=== PATIENT | male | born 1970 | race Hispanic/Latino ===

== ENCOUNTER 2021-04-19 06:25 | Day surgery (SDC) | payer BC, OTHER ==
[2021-04-13 14:52] LABS: Absolute Lymphocytes (CBC) 2.4 K/uL (0.7-4.9); Lymphocytes % 31.8 % (15.3-44.8); MPV 9.6 fL (7.6-11.3); RBC Red Blood Cell Count 5.16 M/uL (4.33-5.43)
--- NOTE | 2021-04-13 14:56 | RAD REPORT ---
EXAM DESCRIPTION: Nic Davidson (2 Views)04/13/2021 2:41 pm CLINICAL HISTORY: Preop for toe amputation. Hypertension COMPARISON: 2016 FINDINGS: The lungs appear clear of acute infiltrate. The heart is normal size. PICC line with its tip in proximal superior vena cava IMPRESSION: No acute abnormalities displayed
[2021-04-13 15:05] LABS: BUN Blood Urea Nitrogen 21 mg/dL (7-18); Bicarbonate 27 mmol/L (21-32); Glucose Level 107 mg/dL (74-106); Potassium 4.3 mmol/L (3.5-5.1); Sodium Level 142 mmol/L (136-145)
--- NOTE | 2021-04-18 12:10 | EKG ---
Test Date: 2021-04-13 Test Time: 13:22:09 [place]: WILMAR MEASUREMENT RESULTS: Intervals: Rate: 62 WY: 210 QRSD: 90 QT: 424 QTc: 430 [place]: P: 30 WY: 210 QRS: 75 T: 7 INTERPRETIVE STATEMENTS: Sinus rhythm with 1st degree AV block Possible Inferior infarct, age undetermined Abnormal ECG No previous ECG available for comparison Electronically Signed On 04-18-21 11:55:40 CDT by Pradeep Maldonado
--- NOTE | 2021-04-18 18:53 | PREOPHP ---
Date of Admission: 04/19/2021 History Of Present Illness: This patient presented to my office initially with chief complaint of an ingrown toenail on the right big toe, which was treated with an ingrown toenail procedure, chemical matrixectomy. The patient, however, has had the problem on and off for a year with pus and blood darinel f-treating. Approximately 2 weeks after the procedure had healed and was fine, the patient returned with a swollen right big toe that was painful. X-ray evaluation revealed bone changes consistent wit h osteomyelitis and the patient was sent for IV antibiosis [facility] over the past 2 months. The patient has undergone treatment with an IV cephalosporin, but the pat ient has had continued discomfort in the toe with episodes of swelling and irritation. Upon discussi on with Dr. Contreras, it was decided that amputation of the distal phalanx and part of the proximal ph alanx of the left hallux was necessary. Past Medical History: Includes diabetes, high cholesterol, hypertension, and history of gout. Current Medications: Valsartan, amlodipine, metformin, lovastatin, metoprolol, colchicine and Jardia nce. Allergies: THE PATIENT HAS NO KNOWN ALLERGIES. Social History: Includes current everyday smoker and heavy beer drinker. IV drug use is denied. Past Surgical History: Includes cholecystectomy, carpal tunnel release, and rotator cuff surgery. Family History: Positive for high cholesterol, hypertension in his mother and father and brother. Physical Examination: General: The patient is healthy, well developed, well nourished, well oriented x3. Vascular: Evaluation reveals dorsalis pedis and posterior tibial pulses to be 4/4 bilaterally. Capi llary refill time is less than 3 seconds. Temperature gradient is within normal limits. Musculoskeletal: Evaluation reveals normal lower extremity muscle strength and range of motion. Kne es, ankle alignment is within normal limits. Digits are aligned, within normal limits. Skin: Evaluation reveals episodes of redness and swelling to the left big toe with currently no swel ling or redness. Neurologic: Evaluation reveals deep tendon reflexes for the patella and Achilles to be 5/5 bilateral ly. Vibratory and sharp dull sensation are decreased mildly bilaterally. Laboratory Data: X-ray evaluation of the left big toe reveals cystic changes to the distal phalanx w ith erosion at the distal tip of the distal phalanx of the left hallux. The proximal phalanx shows n o changes and has showed no changes over the past 2 months. The IV antibiotics given by Dr. Contreras have not succeeded in the resting the infection and at this time, amputation is recommended. Diagnosis: Chronic osteomyelitis, left big toe. The patient understands risks, benefits, and altern atives of the above-mentioned procedure including, but not limited to the risk of pain, swelling, num bness, stiffness, infection, nonhealing of skin or bone, recurrence of the infection requiring furthe r amputation. Risks of COVID have been gone over including the risk of increased blood clots and sev ere infection from COVID compromising healing. The patient has been made aware that he should follow CDC guidelines and be vaccinated if he has not. The IV antibiotics will be continued for approximat marimar 1 week after surgery per discussion with Dr. Contreras. Postop shoe was dispensed for the patient to wear postoperatively. The patient is scheduled for surgery at [facility] on April 19, 2021. Me dical H and P will be completed by Anesthesia. NABIL/JARETH Voice ID: [id number]
[2021-04-19] MEDS ORDERED: D5 0.9 NS 1,000 ML IV ONE (06:49)
[2021-04-19] MEDS: BUPIVACAINE 0.5% PF 10 ML VIAL ONE ×2 (07:19→07:35)
[2021-04-19] MEDS ORDERED: propofoL 200 MG/20 ML VIAL IV ONE ×2 (07:31→08:06)
[2021-04-19] MEDS ORDERED: MIDAZOLAM HCL 2 MG/2 ML INJ ONE (07:31)
[2021-04-19] MEDS ORDERED: LIDOCAINE 2% MPF 5 ML VIAL ONE (07:31)
[2021-04-19] MEDS ORDERED: dexAMETHasone 10 MG/ML VIAL ONE (07:31)
[2021-04-19] MEDS ORDERED: FENTANYL CITR 100 MCG/2 ML ONE (07:31)
[2021-04-19] MEDS ORDERED: ONDANSETRON 4 MG/2 ML VIAL ONE (07:32)
[2021-04-19] MEDS ORDERED: KETOROLAC 30 MG/ML INJ ONE (07:34)
[2021-04-19] MEDS ORDERED: NS 0.9% VIAL 30 ML ONE (07:58)
[2021-04-19 09:45] VITALS: BP 96/68; TEMP 97; O2SAT 99
--- NOTE | 2021-04-19 10:03 | DS ---
Date Of Surgery: 04/19/2021. Surgeon: Jose Cruz Garrison DPM Preoperative Diagnosis: Osteomyelitis distal phalanx, left hallux. Postoperative Diagnosis: Osteomyelitis distal phalanx, left hallux. Procedure: Amputation through proximal phalanx of left hallux. Hospital Course: The patient tolerated the procedure and anesthesia well. May resume normal diet up on discharge to home per Anesthesia guidelines. The patient will be followed up in my office in 1 we for postoperative care. Postop instructions were given in the written form as well as emergency p alvina number and a postoperative shoe. Pain medications were also dispensed to the patient. NABIL/JARETH Voice ID: [id number] Report ID: [id number]
--- NOTE | 2021-04-19 10:03 | OP ---
Date of Procedure: 04/19/2021 Surgeon: Jose Cruz Garrison DPM Preoperative Diagnosis: Osteomyelitis distal phalanx, left hallux. Postoperative Diagnosis: Osteomyelitis distal phalanx, left hallux. Procedure: Amputation through proximal phalanx, left hallux. Anesthesia: Via local infiltration. Procedure In Detail: The patient was brought into the operating room, placed on the operating table in supine position. Once adequate IV sedation was obtained, the patient was injected with a total of 7 mL of 0.5% Marcaine plain. The patient was prepped and draped in usual sterile manner and the lef t extremity was elevated and Esmarch bandage was applied to exsanguinate the blood supply. Pneumatic ankle tourniquet was elevated to 250 mmHg. Attention was then directed to the left hallux. The IP joint was isolated and 2 semi-elliptical transverse incisions were made approximately 2.5 cm in lengt h to ellipse the hallux at the IP joint, distal and plantar flaps. The incision was deepened straigh t to bone. All neurovascular structures were avoided or bovied. The IP joint was isolated and disar ticulated and the distal phalanx and toe were removed and sent for pathology. Bone culture was taken of the distal phalanx using a rongeur, aerobic and anaerobic. The area of the incision was inspecte d. There was no necrosis. No sign of exudate. The proximal phalanx was then approached and dissect ed free from its soft tissue attachments dorsally and plantarly. The cartilage was seen to be in exc ellent condition. Bone was hard with no soft areas upon examination with a [place] elevator. Utilizin g a sagittal saw, the proximal phalanx was cut approximately 8 mm from the distal aspect through the shaft. Bone was hard without any obvious signs of infection. All rough edges were smoothed utilizin g a rasp. The area was flushed with copious amounts of sterile saline, but prior to that, a culture was taken of the amputation site for evaluation. Again, the area was flushed with copious amounts of sterile saline. The extensor and flexor tendons were cut and retracted proximally. Skin was then r eapproximated utilizing a 4-0 nylon suture. Pneumatic ankle tourniquet was deflated and capillary re turn was seen to be instantaneous to all digits including the flaps of the hallux amputation. The ar ea was dressed with Adaptic, dry sterile gauze, dry sterile Kerlix, and an Joe bandage. The patient will be seen in my office for postoperative care. The patient was discharged to Recovery in satisfac tory condition. EMELIA Voice ID: [id number] Report ID: [id number]
--- NOTE | 2021-04-19 10:13 | RAD REPORT ---
EXAM DESCRIPTION: RAD - Foot Left 2 View - 04/19/2021 10:06 am CLINICAL HISTORY: Foot surgery FINDINGS: Amputation involves the mid aspect of the first proximal phalanx. No fracture or dislocation .
== END 2021-04-19 09:21 | disposition home or self-care (01) ==
LOC: OR 06:25
PROVIDERS: ATTEND Podiatrist
PROC: 0Y6Q0Z1 Detachment at Left 1st Toe, High, Open Approach (ICD-10-PCS; principal; 2021-04-19 07:30)
DX: M86.672 Other chronic osteomyelitis, left ankle and foot (principal); I10 Essential (primary) hypertension; E11.9 Type 2 diabetes mellitus without complications; E78.00 Pure hypercholesterolemia, unspecified; Z20.822 Contact with and (suspected) exposure to COVID-19
CPT/HCPCS: 93005; 87070 ×2; 85025; 80048; 36415; 87205 ×2; 82947 ×2; 88305; 88311; 87075 ×2; 71046; 73620; 28825; U0003; J2704; J2250; J3010; J7042; J2405; J1100

== ENCOUNTER → 2023-11-14 | Emergency (ER) | payer BC, OTHER ==
--- NOTE | 2023-11-14 16:39 | RAD REPORT ---
EXAM DESCRIPTION: MRI - Brain Wo Cont - 11/14/2023 4:04 pm CLINICAL HISTORY: facial numbness/palsy COMPARISON: None available TECHNIQUE: Multiplanar multisequence MRI of the brain performed without IV contrast. FINDINGS: No evidence of acute infarct or other diffusion signal abnormality. No evidence of acute intracranial hemorrhage or abnormal extra-axial fluid collections. Ventricular caliber within normal for age. Midline structures are unremarkable. Subtle scattered subcortical and deep white matter T2/FLAIR hyperintensities, nonspecific. No mass effect or midline shift. Major vascular flow voids are preserved. Mastoid air cells and paranasal sinuses are clear. IMPRESSION: No acute intracranial process. No evidence of ventriculomegaly or mass effect. Subtle scattered subcortical and deep white matter T2/FLAIR hyperintensities, nonspecific, but may lind ggest mild chronic small vessel ischemic changes.
[2023-11-14 17:00] LABS: Absolute Lymphocytes (CBC) 1.9 K/uL (0.7-4.9); Hematocrit 43.5 % (39.6-49.0); MCV 88.4 fL (80-100); MPV 9.1 fL (7.6-11.3); Platelets 193 thou/uL (152-406); RBC Red Blood Cell Count 4.92 M/uL (4.33-5.43)
[2023-11-14 17:10] LABS: Protime INR 0.97
--- NOTE | 2023-11-14 17:10 | RAD REPORT ---
EXAM DESCRIPTION: CT - Head Brain Wo Cont - 11/14/2023 5:01 pm CLINICAL HISTORY: facial numbness COMPARISON: No comparisons TECHNIQUE: Noncontrast head CT images were obtained without IV contrast. Multiplanar reformats were generated and reviewed. All CT scans are performed using dose optimization technique as appropriate and may include automated exposure control or mA/KV adjustment according to patient size. FINDINGS: No intracranial hemorrhage, mass, or edema. Midline structures are unremarkable. Normal ventricular caliber for age. Peterson-white matter differentiation is preserved, without evidence of acute infarct. No abnormal extra- axial fluid collections. Mastoid air cells and visualized portions of the paranasal sinuses are clear. No acute bony findings. IMPRESSION: No evidence of an acute intracranial process.
[2023-11-14 17:25] LABS: Albumin 3.9 g/dL (3.4-5.0); Bilirubin Total 0.4 mg/dL (0.2-1.0); Potassium 3.7 mEq/L (3.5-5.1); Protein, Total 7.4 g/dL (6.4-8.2)
--- NOTE | 2023-11-14 17:30 | RAD REPORT ---
EXAM DESCRIPTION: CT - Head angio - 11/14/2023 5:01 pm CLINICAL HISTORY: facial numbness COMPARISON: Head Brain Wo Cont dated 11/14/2023 TECHNIQUE: Axial CT angiography images of the head was performed with multiplanar and maximum intens ity projection reconstructions. Images performed following intravenous administration of 95mL Isovue 370. All CT scans are performed using dose optimization technique as appropriate and may include automated exposure control or mA/KV adjustment according to patient size. FINDINGS: No evidence of large vessel occlusion. No evidence of aneurysm or dissection flap is detec rigoberto. No flow-limiting stenosis or vascular malformation identified. Antegrade flow is seen in the vertebral arteries. The vertebral arteries are codominant. The visualized dural venous sinuses are grossly patent. IMPRESSION: No evidence of large vessel occlusion or flow-limiting stenosis.
--- NOTE | 2023-11-14 17:40 | RAD REPORT ---
EXAM DESCRIPTION: CT - Neck Angio - 11/14/2023 5:01 pm CLINICAL HISTORY: facial numbness COMPARISON: Head angio dated 11/14/2023 TECHNIQUE: Axial CT angiography images of the head was performed with multiplanar and maximum intens ity projection reconstructions. Images performed following intravenous administration of 95mL Isovue 370. All CT scans are performed using dose optimization technique as appropriate and may include automated exposure control or mA/KV adjustment according to patient size. Quantification of carotid stenosis, if any, is performed according to NASCET criteria. FINDINGS: A left aortic arch is identified with normal three vessel configuration of the great vesse ls. No significant flow abnormality is seen of the common carotid bilaterally. Mild atherosclerotic calci fic plaque seen along the carotid bifurcations bilaterally. No significant stenosis is identified involving the cervical segments of both internal carotid arteri es. Normal flow is seen within both vertebral arteries. The left vertebral artery is dominant. Right vert ebral artery essentially terminates as the right PICA and AICA. IMPRESSION: No significant flow abnormality of the neck vessels is identified. CAROTID STENOSIS REFERENCE USING NASCET CRITERIA: % ICA stenosis = (1 - narrowest ICA diameter/diameter of distal cervical ICA) x 100. Mild - <50% stenosis. Moderate - 50-69% stenosis. Severe - 70-94% stenosis. Near occlusion - 95-99% stenosis. Occluded - 100% stenosis.
--- NOTE | 2023-11-14 17:49 | RAD REPORT ---
EXAM DESCRIPTION: RADChest Single View11/14/2023 5:38 pm CLINICAL HISTORY: facial droop COMPARISON: Chest Pa And Lat (2 Views) dated 04/13/2021; Chest Pa And Lat (2 Views) dated 05/30/2016; CHEST PA AND LAT 2 VIEW dated 09/18/2015 TECHNIQUE: Portable AP view of the chest. FINDINGS: The lungs are clear. No pneumothorax or effusion. The cardiomediastinal contours are unre markable. IMPRESSION: No acute cardiopulmonary process.
--- NOTE | 2023-11-14 17:58 | EDPHYS ---
Physician Documentation [facility] Name: Drew Li Age: 53 yrs Sex: Male : 1970 Arrival Date: 11/14/2023 Time: 15:00 Bed 5 Private MD: ED Physician Loi Lea HPI: 11/14 16:11 This 53 yrs old Male presents to ER via Ambulatory with complaints of Facial ec2 Droop, Numbness Of Face. 16:11 Patient arrives today for evaluation of left-sided facial droop as well as left facial ec2 numbness. States that he has been having symptoms for approximately 3 weeks. Patient reports that he has a history of hypertension, diabetes, hyperlipidemia. Patient reports no recent infectious symptoms, denies any rashes, denies any known tick exposure.. Historical: - Allergies: 15:13 No Known Allergies; hb - Home Meds: 16:00 rosuvastatin 20 mg oral tablet [Active]; metformin 1,000 mg Oral Tablet, ER Gastric hb Retention 24 hr [Active]; Jardiance 25 mg oral tablet [Active]; metoprolol succinate 50 mg oral Capsule, Sprinkle Ext Rel 24hr Dose Pack [Active]; losartan oral [Active]; amlodipine 5 mg oral tablet [Active]; Ozempic 0.25 mg or 0.5 mg (2 mg/3 mL) subcutaneous Pen Injector [Active]; fenofibrate oral [Active]; - PMHx: 15:13 High Cholesterol; Hypertension; Diabetes mellitus; hb - Immunization history:: Client reports receiving the 2nd dose of the Covid vaccine, Flu vaccine is not up to date. - Social history:: Smoking status: Patient reports the use of cigarette tobacco products, smokes one-half pack cigarettes per day. ROS: 16:11 Constitutional: as per hpi ec2 Exam: 16:11 Constitutional: GEN: NAD Head: atraumatic Eyes: EOMI Ears: External ears are ec2 normal. CV: regular rate LUNGS: no respiratory distress ABD: non-distended SKIN: no evidence of rashes MSK: no evidence of trauma NEURO: Diminished left-sided perioral sensation, extraocular motions intact, no tongue deviation noted, no pronator drift, normal [id number], intact strength in the bilateral upper and lower extremities. Vital Signs: 15:15 BP 147 / 97; Pulse 77; Resp 16; Temp 98.3; Pulse Ox 100% on R/A; Weight 98.88 kg; hb Height 5 ft. 8 in. ; Pain 0/10; 18:34 BP 138 / 75; Pulse 76; Resp 16; Pulse Ox 97% on R/A; iw 15:15 Body Mass Index 33.15 (98.88 kg, 172.72 cm) hb 15:15 Pain Scale: Adult hb MDM: 16:31 Patient medically screened. ec2 16:31 Data reviewed: vital signs. ec2 16:32 ED course: Patient arrives today for evaluation of facial numbness and weakness. ec2 Examination remarkable for normal findings noted above. Patient has been having symptoms for 3 weeks and is outside any actionable window. Will obtain lab work, EKG, chest x-ray, MR, CT imaging. Currently considering stroke, electrolyte disturbances, urinary tract infection, Horvath's palsy. No evidence for zoster given lack of skin rashes or lack of recent rashes.. 16:50 ED course: EKG independently reviewed and interpreted by me, shows normal sinus rhythm, ec2 rate of 71, no acute ST segment elevations, normal intervals are nonconcerning, right bundle branch block noted. . 17:52 ED course: CBC is reassuring. Metabolic profile with appropriate electrolytes and renal ec2 function, coagulation profile is unremarkable, CT scan of the head shows no acute intracranial process. Troponin within normal ranges. CT angio of the head and neck shows no flow limiting pathology. 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 I suspect given the duration of symptoms he may have long-term symptoms, will start him on steroids despite symptoms starting several weeks ago. On final assessment patient does have a right-sided facial droop, does have some minor right upper face ptosis. . 11/14 15:32 Order name: Glucose, Ancillary Testing; Complete Time: 16:52 EDMS 11/14 17:01 Order name: CBC with Automated Diff; Complete Time: 17:51 EDMS 11/14 17:10 Order name: Protime (+INR); Complete Time: 17:51 EDMS 11/14 17:10 Order name: PTT, Activated Partial Thromb; Complete Time: 17:51 EDMS 11/14 17:25 Order name: Comprehensive Metabolic Panel; Complete Time: 17:51 EDMS 11/14 17:25 Order name: Troponin High Sensitivity; Complete Time: 17:51 EDMS 11/14 15:28 Order name: MRI - Brain Wo Cont ec2 11/14 15:33 Order name: CT Head Angio ec2 11/14 15:33 Order name: CT Neck Angio ec2 11/14 15:33 Order name: CT Head Brain wo Cont ec2 11/14 16:40 Order name: MRI; Complete Time: 16:52 EDMS 11/14 17:10 Order name: CT; Complete Time: 17:51 EDMS 11/14 17:31 Order name: CT; Complete Time: 17:51 EDMS 11/14 17:41 Order name: CT; Complete Time: 17:51 EDMS 11/14 17:49 Order name: RAD; Complete Time: 17:51 EDMS 11/14 15:33 Order name: EKG; Complete Time: 19:12 ec2 11/14 15:33 Order name: EKG - Nurse/Tech; Complete Time: 16:49 ec2 Administered Medications: No medications were administered Point of Care Testing: Blood Glucose: 15:22 Blood Glucose: 157 mg/dL; hb Ranges: Critical Glucose Levels:Adult <50 mg/dl or >400 mg/dl <40 mg/dl or >180 mg/dl Disposition Summary: 11/14/23 17:58 Discharge Ordered Notes: Location: Home ec2 Condition: Stable 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 Diagnosis - Horvath's palsy ec2 Followup: ec2 - With: Mike Larkin MD - When: - Reason: Recheck today's complaints Discharge Instructions: - Discharge Summary Sheet ec2 - Horvath's Palsy, Adult ec2 Forms: - Medication Reconciliation Form ec2 - Thank You Letter ec2 - Antibiotic Education ec2 - Prescription Opioid Use ec2 - Patient Portal Instructions ec2 - Leadership Thank You Letter ec2 Prescriptions: - Prednisone 20 mg Oral tablet - take 3 tablets ORAL route once daily for 10 days; 30 tablet; Refills: 0, ec2 Product Selection Permitted Signatures: Dispatcher [employer] Bekah Medina RN RN Loi Johnson MD MD ec2 Corrections: (The following items were deleted from the chart) 16:53 16:32 ED course: Patient arrives today for evaluation of facial numbness and weakness. ec2 Examination remarkable for normal findings noted above. Patient has been having symptoms for 3 weeks and is outside any actionable window. Will obtain lab work, EKG, chest x-ray, MR, CT imaging. Currently considering stroke, electrolyte disturbances, urinary tract infection, lower suspicion for Horvath's palsy given the general well appearance and the lack of forehead involvement or specific facial palsy appreciated on my examination.. ec2 17:57 17:52 ED course: CBC is reassuring. Metabolic profile with appropriate electrolytes and ec2 renal function, coagulation profile is unremarkable, CT scan of the head shows no acute intracranial process. Troponin within normal ranges. CT angio of the head and neck shows no flow limiting pathology. 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 I suspect given the duration of symptoms he may have long-term symptoms, will start him on steroids despite symptoms starting several weeks ago. . ec2
--- NOTE | 2023-11-14 17:58 | ER ---
Nurse's Notes [facility] Name: Drew Li Age: 53 yrs Sex: Male : 1970 Arrival Date: 11/14/2023 Time: 15:00 Bed 5 Private MD: Diagnosis: Horvath's palsy Presentation: 11/14 15:12 Chief complaint: Right side of tongue numb x 3 weeks, left facial droop and numbness x hb 3 days. VAN NEGATIVE. 15:12 Method Of Arrival: Ambulatory hb 15:13 Coronavirus screen: At this time, the client does not indicate any symptoms associated hb with coronavirus-19. Ebola Screen: No symptoms or risks identified at this time. 15:14 Initial Sepsis Screen: Does the patient meet any 2 criteria? No. Patient's initial hb sepsis screen is negative. Does the patient have a suspected source of infection? No. Patient's initial sepsis screen is negative. Risk Assessment: Do you want to hurt yourself or someone else? Patient reports no desire to harm self or others. Onset of symptoms was October 24, 2023. 15:14 Acuity: AUGUST[place] 3 hb Triage Assessment: 15:13 General: Appears in no apparent distress. Behavior is calm, cooperative. Pain: Denies hb pain. Neuro: Level of Consciousness is awake, alert, obeys commands, Oriented to person, place, time, situation. Cardiovascular: Patient's skin is warm and dry. Respiratory: Respiratory effort is even, unlabored, Respiratory pattern is regular, symmetrical. Historical: - Allergies: 15:13 No Known Allergies; hb - Home Meds: 16:00 rosuvastatin 20 mg oral tablet [Active]; metformin 1,000 mg Oral Tablet, ER Gastric hb Retention 24 hr [Active]; Jardiance 25 mg oral tablet [Active]; metoprolol succinate 50 mg oral Capsule, Sprinkle Ext Rel 24hr Dose Pack [Active]; losartan oral [Active]; amlodipine 5 mg oral tablet [Active]; Ozempic 0.25 mg or 0.5 mg (2 mg/3 mL) subcutaneous Pen Injector [Active]; fenofibrate oral [Active]; - PMHx: 15:13 High Cholesterol; Hypertension; Diabetes mellitus; hb - Immunization history:: Client reports receiving the 2nd dose of the Covid vaccine, Flu vaccine is not up to date. - Social history:: Smoking status: Patient reports the use of cigarette tobacco products, smokes one-half pack cigarettes per day. Screenin:57 [facility] ED Fall Risk Assessment (Adult) History of falling in the last 3 months, bp including since admission No falls in past 3 months (0 pts). Abuse screen: Denies threats or abuse. Denies injuries from another. Nutritional screening: No deficits noted. Tuberculosis screening: No symptoms or risk factors identified. Assessment: 16:30 Reassessment: Patient appears in no apparent distress at this time. Patient is alert, bp oriented x 3, equal unlabored respirations, skin warm/dry/pink. 18:34 Reassessment: Patient appears in no apparent distress at this time. Patient and/or iw family updated on plan of care and expected duration. Pain level reassessed. Patient is alert, oriented x 3, equal unlabored respirations, skin warm/dry/pink. Vital Signs: 15:15 BP 147 / 97; Pulse 77; Resp 16; Temp 98.3; Pulse Ox 100% on R/A; Weight 98.88 kg; hb Height 5 ft. 8 in. ; Pain 0/10; 18:34 BP 138 / 75; Pulse 76; Resp 16; Pulse Ox 97% on R/A; iw 15:15 Body Mass Index 33.15 (98.88 kg, 172.72 cm) hb 15:15 Pain Scale: Adult hb ED Course: 15:04 Patient arrived in ED. ts1 15:10 Loi Lea MD is Attending Physician. ec2 15:14 Triage completed. hb 15:14 Arm band placed on. hb 16:32 Raj Mayer, CATRINA is Primary Nurse. bp 16:49 Inserted saline lock: 22 gauge in right forearm, using aseptic technique. Blood bp collected. 16:57 Patient has correct armband on for positive identification. Bed in low position. Call bp light in reach. Side rails up X2. Adult w/ patient. 17:58 Mike Larkin MD is Referral Physician. ec2 18:34 No provider procedures requiring assistance completed. IV discontinued, intact, iw bleeding controlled, No redness/swelling at site. Pressure dressing applied. 18:35 Provided Education on: . iw Administered Medications: No medications were administered Medication: 18:34 VIS not applicable for this client. iw Point of Care Testing: Blood Glucose: 15:22 Blood Glucose: 157 mg/dL; hb Ranges: Outcome: 17:58 Discharge ordered by . ec2 18:35 Discharged to home ambulatory, iw 18:35 Condition: good 18:35 Discharge instructions given to patient, family, Instructed on discharge instructions, follow up and referral plans. medication usage, Demonstrated understanding of instructions, follow-up care, medications, Prescriptions given X 1, 18:35 Patient left the ED. iw Signatures: Aminata Casper RN RN iw Bekah Gaffney RN RN Raj Mayer RN RN bp Meghana Sanches, YANNA PAS ts1 Loi Lea MD MD ec2 Corrections: (The following items were deleted from the chart) 15:15 15:12 Chief complaint: Right side of tongue numb x 3 weeks, facial droop and numbness x hb 3 days. hb
[2023-11-14 20:08] VITALS: BP 138/75; TEMP 98.3; O2SAT 97
== END ==
LOC: ER 15:00
DX: G51.0 Bell's palsy (principal); E11.9 Type 2 diabetes mellitus without complications; I10 Essential (primary) hypertension
CPT/HCPCS: 85025; 36415; 85610; 82565; 82947; 85730; 84484; 80053; 70450; 70496; 70498; 71045; 70551; 99284; Q9967; 93005

== ENCOUNTER 2023-12-19 08:15 | Day surgery (SDC) | payer BC, OTHER ==
[2023-12-19 08:41] LABS: Potassium 4.5 mEq/L (3.5-5.1)
[2023-12-19] MEDS ORDERED: CEFAZOLIN SODIUM 2 GM/VIAL ONE (08:44)
[2023-12-19] MEDS ORDERED: NA CHLORIDE 0.9% 1,000 ML ONE (08:44)
[2023-12-19] MEDS ORDERED: MIDAZOLAM HCL 2 MG/2 ML INJ ONE (09:27)
[2023-12-19] MEDS ORDERED: LIDOCAINE 1% MPF 5 ML VIAL ONE (09:27)
[2023-12-19] MEDS ORDERED: propofoL 200 MG/20 ML VIAL IV ONE (09:27)
[2023-12-19] MEDS ORDERED: FENTANYL CITR 100 MCG/2 ML ONE (09:38)
[2023-12-19] MEDS ORDERED: dexAMETHasone 4 MG/ML VIAL ONE (09:44)
[2023-12-19] MEDS ORDERED: ONDANSETRON 4 MG/2 ML VIAL ONE (09:44)
[2023-12-19] MEDS: BUPIVACAINE 0.25% PF 30 ML VIAL ONE ×2 (09:58→10:01)
--- NOTE | 2023-12-19 10:19 | P.OP ---
Preoperative diagnosis: Central Upper Back Infected Sebaceous Cyst w/ Abscess Postoperative diagnosis: Central Upper Back Infected Sebaceous Cyst w/ Abscess Primary procedure: Excisional Debridement of Central Upper Back Infected Sebaceous Cyst w/ Abs Anesthesia: GETA + Local Estimated blood loss: <5cc Specimen: Cultures, Debridement Tissue Findings: 11cm x 4.5 cm Central Upper Back Infected Sebaceous Cyst w/ Abscess Complications: None Transferred to: Recovery Room Condition: Good
[2023-12-19] MEDS: FENTANYL CITR 100 MCG/2 ML ONE ×2 (10:43→10:49)
[2023-12-19 11:11] VITALS: O2SAT 96
--- NOTE | 2023-12-19 11:12 | OP ---
Date of Procedure: 12/19/2023 Surgeon: Gonzalez Cardenas MD, Preoperative Diagnosis: Central upper back infected sebaceous cyst with abscess. Postoperative Diagnosis: Central upper back infected sebaceous cyst with abscess. Procedure Performed: Excisional debridement of central upper infected sebaceous cyst with abscess. Anesthesia: General endotracheal with local with 0.25% Marcaine. Estimated Blood Loss: Less than 5 cc. Specimen: Culture sent for aerobic and anaerobic speciation and debridement tissue. Findings: 11 cm x 4.5 cm central upper back infected sebaceous cyst with abscess. Complications: None. Disposition: The patient was transferred to recovery room in good condition. Procedure In Detail: After informed consent was obtained, the patient was brought to the operating r oom, prepped and draped in the usual sterile fashion. After adequate anesthesia was achieved, I made an elliptical incision circumferentially around obviously infected sebaceous cyst with abscess emana ting. This was taken down using electrocautery circumferentially down into the fascia abutting the m uscular plane, but not involving it circumferentially around for the 11 cm x 4.5 cm proximal in size. Abscess material was encountered. This was sent off for aerobic, anaerobic, speciation. At this p oint, tissue was removed, sent off for pathologic examination. I then copiously irrigated the area. Hemostasis was achieved with electrocautery. I then partially reapproximated the wound with 2-0 nyl on at the lateral edges and packed the central portion of it with Vashe soaked, Kerlix, and sterile d ressing placed over top. The patient tolerated the procedure without incident or complication and tr ansferred to PACU in good condition. All counts were correct at the end of the case. SHANITA/JARETH Voice ID: [id number] Report ID: [id number]
[2023-12-19 12:03] VITALS: BP 109/59; TEMP 98
== END 2023-12-19 11:55 | disposition home or self-care (01) ==
LOC: OR 08:15
PROVIDERS: ATTEND Surgery
PROC: 0JB70ZZ Excision of Back Subcutaneous Tissue and Fascia, Open Approach (ICD-10-PCS; principal; 2023-12-19 09:30)
DX: L72.0 Epidermal cyst (principal); L02.212 Cutaneous abscess of back [any part, except buttock and flank]
CPT/HCPCS: 87070; 80048; 36415; 87205; 82947 ×2; 88304; 87075; 11042; 11045 ×2; J2704; J1100; J2001; J2250; J3010 ×2; J2405; J7030